=== PATIENT | male | born 1980 | race Caucasian/White ===

== ENCOUNTER 2023-10-07 18:29 | Emergency (ER) | payer OTHER ==
[~2023-10-07] VITALS: Ht 180.3 cm; Wt 95.9 kg
[2023-10-07 18:56] VITALS: TEMP 97.7
[2023-10-07] MEDS ORDERED: diazePAM 5 MG TAB PO ONE (21:15)
[2023-10-07] MEDS ORDERED: Ketorolac 30 MG/ML VIAL IM ONE (21:15)
[2023-10-07] MEDS ORDERED: fentaNYL 50 MCG/ML 2 ML VIAL IV ONE (21:15)
[2023-10-07 21:32] VITALS: BP 148/82; PULSE 76
== END 2023-10-07 21:32 | disposition home or self-care (01) ==
LOC: COL.ER 18:29
DX: M54.50 Low back pain, unspecified (principal); X50.1XXA Overexertion from prolonged static or awkward postures, initial encounter
CPT/HCPCS: J1885; J3010